=== PATIENT | female | born 1935 | race Caucasian/White ===

== ENCOUNTER 2019-03-16 05:15 | Day surgery (SDC) ==
--- NOTE | 2019-03-09 07:50 | EKG Report ---
Test Performed on : 03/09/2019 07:29:32 AM Test Reason : PAT Blood Pressure : / mmHG Vent. Rate : 064 BPM Atrial Rate : 064 BPM P-R Int : 154 ms QRS Dur : 084 ms QT Int : 428 ms P-R-T Axes : 068 050 053 degrees QTc Int : 441 ms Normal sinus rhythm. Possible Left atrial enlargement Nonspecific ST abnormality Abnormal ECG When compared with ECG of 23-JUL-2017 07:59, No significant change was found Confirmed by Tony LOPEZ, Piero Olivas ([id number]) on 03/09/2019 9:44:58 AM
[2019-03-09 09:34] LABS: URINE SOURCE CLEAN CATCH
[2019-03-09 09:57] LABS: BASO# 0.02 X1000 (0.0-0.2); BASO% 0.4 % (0.0-0.8); EOS# 0.01 X1000 (0.0-0.7); EOS% 0.2 % (0.0-10.0); HEMATOCRIT 39.4 % (37.0-47.0); LYMPH# 1.43 X1000 (1.2-3.4); LYMPH% 28.9 % (20.5-51.1); MCH 32.7 PG (27-31); MCHC 35.5 g/dL (33-37); MCV 92.1 FL (81-99); MONO# 0.52 X1000 (0.11-0.59); MONO% 10.5 % (1.7-9.3); MPV 10.4 FL (7.4-10.4); NEUT# 2.96 X1000 (1.4-6.5); PLT 220 X1000 (130-400); RBC 4.28 XMIL (4.2-5.4); RDW 11.5 % (11.5-14.5); WBC 4.94 X1000 (4.8-10.8)
[2019-03-09 10:02] LABS: BILIRUBIN URINE NEGATIVE (NEGATIVE); BLOOD URINE NEGATIVE (NEGATIVE); COLOR YELLOW; GLUCOSE URINE NEGATIVE (NEGATIVE); KETONE URINE NEGATIVE (NEGATIVE); LEUKOCYTES URINE TRACE (NEGATIVE); NITRITE URINE NEGATIVE (NEGATIVE); PH URINE 6.5; PROTEIN URINE NEGATIVE (NEGATIVE); SP GRAVITY URINE 1.008; TURBIDITY URINE CLEAR (CLEAR); UROBILINOGEN URINE NORMAL (NORMAL)
[2019-03-09 10:04] LABS: UR EPITHELIAL CELLS <10 /HPF (<10); URINE BACTERIA NEGATIVE /HPF; URINE RBC <10 /HPF (<10); URINE WBC <10 /HPF (<10)
[2019-03-09 10:09] LABS: INR 0.95; PROTIME 13.4 Seconds (11.0-16.0)
[2019-03-09 10:10] LABS: PTT 27.5 Seconds (22.3-41.8)
[2019-03-09 11:25] LABS: CREATININE 0.9 mg/dL (0.5-0.9); POTASSIUM 3.8 mmol/L (3.5-5.1)
[2019-03-16] MEDS ORDERED: PEPCID ONE (05:38)
[2019-03-16] MEDS ORDERED: LYRICA ONE (05:38)
[2019-03-16] MEDS ORDERED: COLACE ONE (05:38)
[2019-03-16] MEDS ORDERED: REGLAN ONE (05:38)
[2019-03-16] MEDS ORDERED: CELEBREX ONE (05:39)
[2019-03-16] MEDS ORDERED: KEFZOL 1 GM/D5W 1 GM/50 ML IVPB ONE (05:39)
[2019-03-16] MEDS ORDERED: LR 1,000 ML ONE (05:39)
[2019-03-16] MEDS ORDERED: ZIAC 5/6.25 MG PO ONE (06:15)
[2019-03-16] MEDS ORDERED: DIPRIVAN 1% 500 MG/50 ML BOTTLE ONE (06:16)
[2019-03-16] MEDS ORDERED: FENTANYL ONE (06:37)
[2019-03-16] MEDS ORDERED: DURAMORPH ONE (06:38)
[2019-03-16] MEDS ORDERED: MARCAINE 0.25% PF/EPI 1:200,000 ONE (06:38)
[2019-03-16] MEDS ORDERED: VANCOMYCIN ONE (06:38)
[2019-03-16] MEDS ORDERED: TORADOL ONE (06:38)
[2019-03-16] MEDS ORDERED: EXPAREL 1.3% ONE (06:39)
[2019-03-16] MEDS ORDERED: NEOSPORIN G.U. IRRIGANT ONE (06:39)
[2019-03-16] MEDS ORDERED: SODIUM CHLORIDE 0.9% ONE (06:39)
[2019-03-16] MEDS: CYKLOKAPRON 1,000 MG/NS 2,000 MG/200 ML IVPB ONE ×2 (07:15→08:35)
[2019-03-16] MEDS ORDERED: ZOFRAN ONE (07:31)
[2019-03-16] MEDS ORDERED: OFIRMEV 1000 MG/ISOTONIC SOLN 1,000 MG/100 ML BOTTLE ONE (07:31)
[2019-03-16] MEDS ORDERED: ROBINUL ONE (07:31)
[2019-03-16] MEDS ORDERED: DECADRON ONE (07:31)
[2019-03-16] MEDS ORDERED: XYLOCAINE-MPF 2% ONE (07:35)
[2019-03-16 09:20] LABS: URINE SOURCE CATH
[2019-03-16 09:43] LABS: BILIRUBIN URINE NEGATIVE (NEGATIVE); BLOOD URINE NEGATIVE (NEGATIVE); COLOR YELLOW; GLUCOSE URINE NEGATIVE (NEGATIVE); KETONE URINE NEGATIVE (NEGATIVE); LEUKOCYTES URINE NEGATIVE (NEGATIVE); NITRITE URINE NEGATIVE (NEGATIVE); PH URINE 6.5; PROTEIN URINE NEGATIVE (NEGATIVE); SP GRAVITY URINE 1.009; TURBIDITY URINE CLEAR (CLEAR); UROBILINOGEN URINE NORMAL (NORMAL)
[2019-03-16 09:44] LABS: UR EPITHELIAL CELLS <10 /HPF (<10); URINE BACTERIA NEGATIVE /HPF; URINE RBC <10 /HPF (<10); URINE WBC <10 /HPF (<10)
[2019-03-16] MEDS ORDERED: ZOFRAN PO PRN (09:45)
[2019-03-16] MEDS ORDERED: OXY IR PO PRN ×2 (09:45)
[2019-03-16] MEDS ORDERED: MORPHINE IV PRN ×3 (09:45)
[2019-03-16] MEDS ORDERED: NS 1,000 ML ONE (09:46)
--- NOTE | 2019-03-16 10:04 | Diag Imaging Result Doc PS360 ---
KNEE 1-2 VIEWS-RIGHT - 03/16/2019 INDICATION: post op total knee TECHNIQUE: Two views COMPARISON: 05/19/2018 FINDINGS: There has been placement of a right total knee arthroplasty. Alignment is anatomic. No hardware fracture or loosening. IMPRESSION: No complication. Electronically signed by Matt Kunz 03/16/2019 10:01 AM
[2019-03-16] MEDS ORDERED: OXY IR ONE (10:10)
--- NOTE | 2019-03-16 10:40 | OPERATIVE NOTE ---
PROCEDURE DATE: 03/16/2019 PREOPERATIVE DIAGNOSIS: Degenerative osteoarthritis of the right knee. POSTOPERATIVE DIAGNOSIS: Degenerative osteoarthritis of the right knee. PROCEDURE: Right total knee arthroplasty with DePuy Attune size 6 narrow femur, a size 5 tibial tray, a 5 mm rotating platform tibial insert, and a 35 mm medialized anatomic patella. SURGEON: Harshil Rothman MD PIPING ENGINEER: LJ Mendiola SECOND OCCUPATIONAL WORK EXPERIENCE TEACHER: Abhijeet Cifuentes RN ANESTHESIA: Spinal. INTRAVENOUS FLUIDS: 1400 mL lactated Ringer's. ESTIMATED BLOOD LOSS: 25 mL. TOURNIQUET TIME: 80 minutes at 300 mmHg. COMPLICATIONS: None. INDICATION: The patient is a pleasant 84-year-old female with a chronic history of worsening pain and discomfort of the right knee. Continued pain and discomfort despite appropriate nonoperative treatment. X-rays revealed degenerative osteoarthritis and recommendation to proceed with right total knee arthroplasty was offered. Risks and benefits of surgery were explained, including the risks of anesthesia, , bleeding, infection, failure to relieve pain, postoperative stiffness, nerve injury, blood clots, and other imponderables. All questions were answered and patient and family wished to proceed with surgery. DETAILS OF OPERATION: Patient was taken to the operating room and placed supine on the operating table. Once adequate anesthesia was obtained, patient's right lower extremity was subsequently prepped and draped in the usual sterile fashion. Esmarch was used to exsanguinate the right lower extremity and the tourniquet insufflated to 300 mmHg. A standard anterior incision was made with a skin knife. Medial and skin envelopes were developed. Standard medial parapatellar arthrotomy was then performed. Patella fat pad was excised. Retractors were then placed. Approximately 1 cm anterior to the PCL insertion, a starting reamer was passed. Intramedullary guide with a distal femoral cutting block was pinned in position. Distal femoral cut was then performed in a standard fashion. A sizing block was placed and measured a size 6 and corresponding holes were drilled. A size 6 cutting block was placed in position. Anterior, posterior, and chamfer cuts were then made. Attention then turned to the proximal tibia where further resection of the ACL and PCL was performed. Using the extramedullary guide, the proximal tibia cutting block was pinned in position. Had good alignment confirmed the alignment maria elena. The proximal tibia was then resected. Medial and lateral menisci were excised. Curved osteotome was used to remove the posterior osteophytes off the distal femur. A spacer block was placed and has good soft tissue balance in both flexion and extension. Attention was then turned back to the proximal tibia where the size 5 tibial tray appeared to be the correct size. This was pinned in position. This followed by a central reamer and a fin punch. A box cutting guide was then placed on the distal femur and a box cut was performed. A trial femoral component was then placed and 2 lug holes were drilled. A trial tibial insert was then placed and had good soft tissue balancing. The patella was everted and resected standard fashion. A size 35 appeared to be the correct size and the holes were drilled. The trial components were removed. Copious irrigation was then performed with antibiotic pulsatile lavage. Vancomycin was mixed with cement on the back table. Sequential cementing was then performed, first with the tibial tray and excess cement was removed with a [place], followed by the femoral component and excess cement was removed with a [place], followed by trial tibial insert in full extension and axial loading was maintained while the cement cured. Patella was cemented standard fashion. Patella clamp was placed. After cement had cured, peripheral cement was removed with a small osteotome. Exparel was placed in the deep posterior capsule after removing the trial insert. The wound was copiously with antibiotic pulsatile lavage. A 5 mm rotating platform tibial insert was then placed and the knee was then carried through range of motion. It had good range of motion good soft tissue balancing and good patellofemoral tracking. A 1/8-inch Hemovac drain was placed and was not sewn in. Copious irrigation was performed once again and #1 Vicryl was used to repair the arthrotomy, followed by 2- 0 Vicryl to repair the subcutaneous tissue, and skin stapled. Adaptic, sterile 4 x 4, Webril, cryo unit, and Riaz wrap were applied to the right lower extremity. The patient tolerated the procedure well and was transferred to the recovery room in stable condition. cc: Harshil Rothman MD
[2019-03-16] MEDS: TYLENOL PO SCH ×2 (15:36→20:52)
[2019-03-16] MEDS: KEFZOL 1 GM/D5W 1 GM/50 ML IVPB IV SCH ×2 (15:37→23:31)
[2019-03-16] MEDS: PERIDEX MT SCH (20:51)
[2019-03-16] MEDS: COLACE PO SCH (20:52)
[2019-03-16] MEDS: NS 1,000 ML IV SCH ×2 (20:52→23:31)
[2019-03-17] MEDS ORDERED: XARELTO PO SCH (06:00)
[2019-03-17] MEDS: TYLENOL PO SCH ×2 (06:23→12:30)
[2019-03-17 06:43] LABS: HEMATOCRIT 31.1 % (37.0-47.0); HEMOGLOBIN 10.8 g/dL (12.0-16.0)
--- NOTE | 2019-03-17 07:01 | ORTHOPAEDICS PROGRESS NOTE ---
DATE: 03/17/2019 SUBJECTIVE: The patient is a pleasant, 84-year-old female who is 1 day status post right total knee arthroplasty. She is currently resting comfortably. OBJECTIVE: On physical exam, the patient's wound looked good. There were no signs or symptoms of infection. Calf is soft. Active dorsiflex and plantar flexion. She is neurovascularly distally. Labs are pending. IMPRESSION: Postoperative day #1 status post right total knee arthroplasty. PLAN: At this point, we will begin mobilization with physical therapy. We will plan on discharging home once she is mobilizing well. We will arrange for home physical therapy. cc: Harshil Rothman MD
[2019-03-17 07:09] LABS: CALCIUM 8.5 mg/dL (8.8-10.2); POTASSIUM 3.8 mmol/L (3.5-5.1)
[2019-03-17] MEDS ORDERED: ZIAC 5/6.25 MG PO SCH (09:00)
[2019-03-17] MEDS ORDERED: MINOCIN PO SCH (09:00)
[2019-03-17] MEDS ORDERED: PRILOSEC PO SCH (09:00)
[2019-03-17] MEDS ORDERED: HYZAAR 100/12.5 MG TAB PO SCH (09:00)
[2019-03-17] MEDS: PERIDEX MT SCH (10:05)
[2019-03-17] MEDS: COLACE PO SCH (10:05)
[2019-03-17] MEDS: NS 1,000 ML IV SCH (12:29)
[2019-03-17 15:36] VITALS: BP 142/60
== END 2019-03-17 17:40 | disposition home or self-care (01) ==
LOC: 4N 05:15 → OR 05:15
PROVIDERS: ATTEND Orthopaedic Surgery Adult Reconstructive Orthopaedic Surgery
CPT/HCPCS: 73560; 80048; 81001; 85014; 85018; 85025; 85610; 85730; 86850; 86900; 86901; 88305; 88311; 93005; 93010; 94761; 94799; 97110; 97116; 97162; 97530; A9270; C9290; J0131; J0690; J1100; J1885; J2274; J2275; J2405; J3010; J3370; J7030; J7120; Q9974; S0020